=== PATIENT | male | born 1995 | race Caucasian/White ===

== ENCOUNTER 2017-04-15 15:02 | Emergency (ER) | payer SELFPAY ==
[~2017-04-15] VITALS: Ht 160 cm; Wt 51.9 kg
[2017-04-15 15:06] VITALS: BP 105/67; PULSE 83; RESP 20; TEMP 97.7; O2SAT 100
[2017-04-15 15:20] VITALS: RESP 16; O2SAT 99
[2017-04-15] MEDS ORDERED: SODIUM CHLOR 0.9% 1000 ML INJ 1,000 ML IV SCH (15:27)
[2017-04-15] MEDS ORDERED: ONDANSETRON HCL 4 MG/2 ML VIAL IVP ONE (15:30)
[2017-04-15] MEDS ORDERED: FAMOTIDINE 20 MG/2 ML VIAL IV PUSH ONE (15:30)
[2017-04-15 15:43] LABS: AUTOMATED NEUTROPHIL # 9.6 TH/MM3 (1.8-7.7); BASOPHIL % 0.3 % (0.0-2.0); EOSINOPHIL % 0.1 % (0.0-4.0); HEMATOCRIT 38.6 % (39.0-51.0); HEMO FLAGS DIFF FINAL; LYMPH % 5.3 % (9.0-44.0); LYMPHOCYTE # 0.5 TH/MM3 (1.0-4.8); MEAN CELL VOLUME 89.7 FL (80.0-100.0); MEAN CORPUSCULAR HEMOGLOBIN 30.8 PG (27.0-34.0); MEAN CORPUSCULAR HGB CONC 34.4 % (32.0-36.0); MONO % 1.9 % (0.0-8.0); NEUT % 92.4 % (16.0-70.0); PLATELET COUNT 200 TH/MM3 (150-450); WHITE BLOOD COUNT 10.3 TH/MM3 (4.0-11.0)
--- NOTE | 2017-04-15 15:44 | PD ---
HPI Chief Complaint: GI Complaint Time Seen by Provider: 15:18 Travel History International Travel<30 days: No Contact w/Intl Traveler<30days: No Traveled to known affect area: No History of Present Illness HPI Patient is a 21-year-old male comes in complaining of abdominal pain with nausea and vomiting. He says that he started feeling unwell yesterday, he thought it was related to all the Motrin that he was taking. He says it started with pain in his back and now has pain to the front of his abdomen. He started vomiting early this morning and has vomited several times. The last thing he ate was [employer] last night. He had a bowel movement today that was normal. He denies fever or chills. PFSH Past Medical History Medical History: Denies Significant Hx Past Surgical History Surgical History: No Previous Surgery Social History Tobacco Use: Yes Allergies-Medications (Allergen,Severity, Reaction): Coded Allergies: No Known Allergies (Verified , 04/19/17) Reported Meds & Prescriptions Reported Meds & Active Scripts Active Naprosyn (Naproxen) 500 Mg Tab 500 Mg PO BID PRN Zofran Odt (Ondansetron Odt) 4 Mg Tab 4 Mg SL Q8HR PRN May substitute non-ODT form. Flomax (Tamsulosin HCl) 0.4 Mg Cap 0.4 Mg PO HS Percocet (Oxycodone-Acetaminophen) 5-325 mg Tab 2 Tab PO Q6H PRN Review of Systems Except as stated in HPI: all other systems reviewed are Neg General / Constitutional: No: Fever, Chills HENT: No: Headaches, Lightheadedness Cardiovascular: No: Chest Pain or Discomfort Respiratory: No: Shortness of Breath Gastrointestinal: Positive: Nausea, Vomiting, Abdominal Pain, No: Diarrhea Musculoskeletal: No: Myalgias, Edema Skin: No Rash, No Change in Pigmentation Neurologic: No: Weakness, Dizziness Physical Exam Narrative GENERAL: Awake and alert, in no acute distress. SKIN: Focused skin assessment warm/dry. HEAD: Atraumatic. Normocephalic. EYES: Pupils equal and round. No scleral icterus. ENT: Mucous membranes pink and moist. NECK: Trachea midline. No JVD. CARDIOVASCULAR: Regular rate and rhythm. No murmur appreciated. RESPIRATORY: No accessory muscle use. Clear to auscultation. Breath sounds equal bilaterally. GASTROINTESTINAL: Abdomen soft, non-tender, nondistended. No CVA tenderness. MUSCULOSKELETAL: No obvious deformities. No clubbing. No cyanosis. No edema. NEUROLOGICAL: Awake and alert. No obvious cranial nerve deficits. Motor grossly within normal limits. Normal speech. PSYCHIATRIC: Appropriate mood and affect; insight and judgment normal. Data Data Last Documented VS Vital Signs Date Time Temp Pulse Resp B/P Pulse Ox O2 Delivery O2 Flow Rate FiO2 04/15/17 18:39 72 16 112/65 100 04/15/17 16:57 Room Air 04/15/17 15:06 97.7 Orders Complete Blood Count With Diff (04/15/17 15:27) Comprehensive Metabolic Panel (04/15/17 15:27) Lipase (04/15/17 15:27) Iv Access Insert/Monitor (04/15/17 15:27) Ecg Monitoring (04/15/17 15:27) Oximetry (04/15/17 15:27) Ondansetron Inj (Zofran Inj) (04/15/17 15:30) Sodium Chlor 0.9% 1000 Ml Inj (Ns 1000 M (04/15/17 15:27) Sodium Chloride 0.9% Flush (Ns Flush) (04/15/17 15:30) Famotidine Inj (Pepcid Inj) (04/15/17 15:30) Protein Corrected Calcium(Pcc) (04/15/17 15:40) Ondansetron Inj (Zofran Inj) (04/15/17 18:00) Labs Laboratory Tests Test 04/15/17 15:40 White Blood Count 10.3 TH/MM3 Red Blood Count 4.30 MIL/MM3 Hemoglobin 13.3 GM/DL Hematocrit 38.6 % Mean Corpuscular Volume 89.7 FL Mean Corpuscular Hemoglobin 30.8 PG Mean Corpuscular Hemoglobin 34.4 % Concent Red Cell Distribution Width 12.0 % Platelet Count 200 TH/MM3 Mean Platelet Volume 8.3 FL Neutrophils (%) (Auto) 92.4 % Lymphocytes (%) (Auto) 5.3 % Monocytes (%) (Auto) 1.9 % Eosinophils (%) (Auto) 0.1 % Basophils (%) (Auto) 0.3 % Neutrophils # (Auto) 9.6 TH/MM3 Lymphocytes # (Auto) 0.5 TH/MM3 Monocytes # (Auto) 0.2 TH/MM3 Eosinophils # (Auto) 0.0 TH/MM3 Basophils # (Auto) 0.0 TH/MM3 CBC Comment DIFF FINAL Differential Comment Sodium Level 144 MEQ/L Potassium Level 3.6 MEQ/L Chloride Level 109 MEQ/L Carbon Dioxide Level 23.5 MEQ/L Anion Gap 12 MEQ/L Blood Urea Nitrogen 25 MG/DL Creatinine 1.20 MG/DL Estimat Glomerular Filtration 76 ML/MIN Rate Random Glucose 122 MG/DL Calcium Level 11.0 MG/DL Protein Corrected Calcium 10.4 MG/DL Total Bilirubin 0.8 MG/DL Aspartate Amino Transf 17 U/L (AST/SGOT) Alanine Aminotransferase 23 U/L (ALT/SGPT) Alkaline Phosphatase 112 U/L Total Protein 8.1 GM/DL Albumin 4.6 GM/DL Lipase 102 U/L [facility] Medical Decision Making Medical Screen Exam Complete: Yes Emergency Medical Condition: Yes Differential Diagnosis Gastritis versus gastroenteritis versus pancreatitis versus cholecystitis Narrative Course Patient is a 21-year-old male comes in complaining of nausea, vomiting, abdominal pain. Exam shows no acute abnormalities, except patient is actively vomiting. Abdomen is soft and nontender. IV established, labs sent. Patient given IV fluids and Zofran as well as famotidine. Signed out to Dr. Davis to follow up testing and disposition the patient. Condition: Stable Tami Lilly MD Apr 15, 2017 15:44
[2017-04-15] MEDS: SODIUM CHLORIDE 0.9% FLUSH 10 ML FLUSH IV FLUSH PRN ×2 (16:00→18:14)
[2017-04-15 16:06] LABS: CHLORIDE 109 MEQ/L (98-107); POTASSIUM 3.6 MEQ/L (3.5-5.1); SODIUM (NA) 144 MEQ/L (136-145)
[2017-04-15 16:11] LABS: ANION GAP 12 MEQ/L (5-15); BICARBONATE 23.5 MEQ/L (21.0-32.0); BLOOD UREA NITROGEN 25 MG/DL (7-18)
[2017-04-15 16:14] LABS: ALT (GPT) 23 U/L (12-78); AST (GOT) 17 U/L (15-37); GLOMERULAR FILTRATION RATE 76 ML/MIN (>89)
[2017-04-15 16:15] LABS: TOTAL BILIRUBIN ADULT 0.8 MG/DL (0.2-1.0)
[2017-04-15 16:16] LABS: ALKALINE PHOSPHATASE 112 U/L (45-117)
[2017-04-15 16:57] VITALS: BP 107/50; PULSE 78; RESP 16; O2SAT 100
[2017-04-15 17:07] LABS: CALCIUM-PROTEIN CORRECTED 10.4 MG/DL (8.5-10.1)
[2017-04-15] MEDS ORDERED: FAMO20TA2 PO (17:50)
[2017-04-15] MEDS ORDERED: ZOFR4TAB PO (17:50)
--- NOTE | 2017-04-15 17:51 | PD ---
Physical Exam Date Seen by Provider: Apr 15, 2017 Time Seen by Provider: 17:47 Narrative This 21-year-old male who presented with epigastric pain and vomiting. He does take a lot of Aleve and Motrin tooth pain. He was seen by Dr. Carlson fluids were ordered. The patient reports feeling better after the fluids. Lab work is unremarkable. His calcium was 11 but protein corrected calcium is 10.4. He' ll be released with prescription for Zofran and famotidine Data Data Last Documented VS Vital Signs Date Time Temp Pulse Resp B/P Pulse Ox O2 Delivery O2 Flow Rate FiO2 04/15/17 17:37 16 04/15/17 16:57 78 107/50 100 Room Air 04/15/17 15:06 97.7 Orders Complete Blood Count With Diff (04/15/17 15:27) Comprehensive Metabolic Panel (04/15/17 15:27) Lipase (04/15/17 15:27) Iv Access Insert/Monitor (04/15/17 15:27) Ecg Monitoring (04/15/17 15:27) Oximetry (04/15/17 15:27) Ondansetron Inj (Zofran Inj) (04/15/17 15:30) Sodium Chlor 0.9% 1000 Ml Inj (Ns 1000 M (04/15/17 15:27) Sodium Chloride 0.9% Flush (Ns Flush) (04/15/17 15:30) Famotidine Inj (Pepcid Inj) (04/15/17 15:30) Protein Corrected Calcium(Pcc) (04/15/17 15:40) Labs Laboratory Tests Test 04/15/17 15:40 White Blood Count 10.3 TH/MM3 Red Blood Count 4.30 MIL/MM3 Hemoglobin 13.3 GM/DL Hematocrit 38.6 % Mean Corpuscular Volume 89.7 FL Mean Corpuscular Hemoglobin 30.8 PG Mean Corpuscular Hemoglobin 34.4 % Concent Red Cell Distribution Width 12.0 % Platelet Count 200 TH/MM3 Mean Platelet Volume 8.3 FL Neutrophils (%) (Auto) 92.4 % Lymphocytes (%) (Auto) 5.3 % Monocytes (%) (Auto) 1.9 % Eosinophils (%) (Auto) 0.1 % Basophils (%) (Auto) 0.3 % Neutrophils # (Auto) 9.6 TH/MM3 Lymphocytes # (Auto) 0.5 TH/MM3 Monocytes # (Auto) 0.2 TH/MM3 Eosinophils # (Auto) 0.0 TH/MM3 Basophils # (Auto) 0.0 TH/MM3 CBC Comment DIFF FINAL Differential Comment Sodium Level 144 MEQ/L Potassium Level 3.6 MEQ/L Chloride Level 109 MEQ/L Carbon Dioxide Level 23.5 MEQ/L Anion Gap 12 MEQ/L Blood Urea Nitrogen 25 MG/DL Creatinine 1.20 MG/DL Estimat Glomerular Filtration 76 ML/MIN Rate Random Glucose 122 MG/DL Calcium Level 11.0 MG/DL Protein Corrected Calcium 10.4 MG/DL Total Bilirubin 0.8 MG/DL Aspartate Amino Transf 17 U/L (AST/SGOT) Alanine Aminotransferase 23 U/L (ALT/SGPT) Alkaline Phosphatase 112 U/L Total Protein 8.1 GM/DL Albumin 4.6 GM/DL Lipase 102 U/L [facility] Medical Record Reviewed: No Supervised Visit with LONG: No Differential Diagnosis Differential includes gastritis, pancreatitis Narrative Course Lipase is normal Diagnosis Primary Impression: Acute gastritis Qualified Code: K29.00 - Acute gastritis without hemorrhage, unspecified gastritis type Scripts Famotidine 20 Mg Tab20 Mg PO BID #30 TAB Ref 0 Prov:Dao Beltre MD 04/15/17 Ondansetron (Zofran)4 Mg Tab4 Mg PO Q6HR PRN (NAUSEA OR VOMITING) #10 TAB Ref 0 Prov:Dao Beltre MD 04/15/17 Disposition: 01 DISCHARGE HOME Condition: Stable Dao Betlre MD Apr 15, 2017 17:51
[2017-04-15] MEDS ORDERED: ONDANSETRON HCL 4 MG/2 ML VIAL IV PUSH ONE (18:00)
[2017-04-15 18:39] VITALS: BP 112/65
== END 2017-04-15 18:41 | disposition home or self-care (01) ==
LOC: PHED 15:02
DX: M54.9 Dorsalgia, unspecified (principal); K29.00 Acute gastritis without bleeding
CPT/HCPCS: 80053; 83690; 84155; 85025; 96374; 96375; 96376; 99284; J2405; J7030

== ENCOUNTER 2017-04-17 12:03 | Emergency (ER) | payer SELFPAY ==
[~2017-04-17] VITALS: Ht 160 cm; Wt 53.0 kg
[~2017-04-17 12:03] MED LIST: FAMO20TA2 PO; ZOFR4TAB PO
[2017-04-17 12:05] VITALS: BP 122/78; PULSE 78; RESP 16; TEMP 99; O2SAT 100
--- NOTE | 2017-04-17 12:43 | PD ---
HPI Chief Complaint: Abdominal Pain Time Seen by Provider: 12:34 Travel History International Travel<30 days: No Contact w/Intl Traveler<30days: No Traveled to known affect area: No History of Present Illness HPI C/O OF ONGOING RUQ/RLQ PAIN, NAUSEA NOT IMPROVING OVER THE LAST 2 DAYS...PT SEEN HERE RECENTLY HAD BLOOD WORK WITHOUT ANY IMAGING PFSH Past Medical History Asthma: Yes (as a child) Headaches: Yes Social History Alcohol Use: No Tobacco Use: No Substance Use: No Allergies-Medications (Allergen,Severity, Reaction): Coded Allergies: No Known Allergies (Verified , 04/15/17) Reported Meds & Prescriptions Reported Meds & Active Scripts Active Review of Systems Except as stated in HPI: all other systems reviewed are Neg Gastrointestinal: Positive: Abdominal Pain (RUQ/RLQ) Genitourinary: Positive: Flank Pain (RIGHT) Physical Exam Narrative GENERAL: SKIN: Warm and dry. HEAD: Atraumatic. Normocephalic. EYES: Pupils equal and round. No scleral icterus. No injection or drainage. ENT: No nasal bleeding or discharge. Mucous membranes pink and moist. NECK: Trachea midline. No JVD. CARDIOVASCULAR: Regular rate and rhythm. RESPIRATORY: No accessory muscle use. Clear to auscultation. Breath sounds equal bilaterally. GASTROINTESTINAL: Abdomen soft, RUQ AND RLQ MILDLY TTP. nondistended. Hepatic and splenic margins not palpable. NO REBOUND, NO RIGIDITY MUSCULOSKELETAL: Extremities without clubbing, cyanosis, or edema. No obvious deformities. NEUROLOGICAL: Awake and alert. No obvious cranial nerve deficits. Motor grossly within normal limits. Five out of 5 muscle strength in the arms and legs. Normal speech. PSYCHIATRIC: Appropriate mood and affect; insight and judgment normal. Data Data Last Documented VS Vital Signs Date Time Temp Pulse Resp B/P Pulse Ox O2 Delivery O2 Flow Rate FiO2 04/17/17 14:17 16 04/17/17 12:56 98 Room Air 04/17/17 12:54 85 133/76 04/17/17 12:05 99.0 Orders Complete Blood Count With Diff (04/17/17 12:35) Comprehensive Metabolic Panel (04/17/17 12:35) Lipase (04/17/17 12:35) Ct Abd/Pel W Iv Contrast(Rout) (04/17/17 12:35) Iv Access Insert/Monitor (04/17/17 12:35) Ecg Monitoring (04/17/17 12:35) Oximetry (04/17/17 12:35) Hydromorphone Pf Inj (Dilaudid Pf Inj) (04/17/17 12:45) Ondansetron Inj (Zofran Inj) (04/17/17 12:45) Sodium Chlor 0.9% 1000 Ml Inj (Ns 1000 M (04/17/17 12:45) Oral Contrast - Adult (04/17/17 13:00) Diatrizoate Liq ( Gastroview Liq) (04/17/17 13:10) Sodium Chlor 0.9% 1000 Ml Inj (Ns 1000 M (04/17/17 13:45) Iohexol 350 Inj (Omnipaque 350 Inj) (04/17/17 14:36) Labs Laboratory Tests Test 04/17/17 12:40 White Blood Count 11.1 TH/MM3 Red Blood Count 4.24 MIL/MM3 Hemoglobin 13.2 GM/DL Hematocrit 37.8 % Mean Corpuscular Volume 89.1 FL Mean Corpuscular Hemoglobin 31.2 PG Mean Corpuscular Hemoglobin 35.0 % Concent Red Cell Distribution Width 12.2 % Platelet Count 196 TH/MM3 Mean Platelet Volume 8.8 FL Neutrophils (%) (Auto) 87.6 % Lymphocytes (%) (Auto) 5.9 % Monocytes (%) (Auto) 3.8 % Eosinophils (%) (Auto) 0.0 % Basophils (%) (Auto) 2.7 % Neutrophils # (Auto) 9.8 TH/MM3 Lymphocytes # (Auto) 0.7 TH/MM3 Monocytes # (Auto) 0.4 TH/MM3 Eosinophils # (Auto) 0.0 TH/MM3 Basophils # (Auto) 0.3 TH/MM3 CBC Comment DIFF FINAL Differential Comment Sodium Level 142 MEQ/L Potassium Level 3.4 MEQ/L Chloride Level 107 MEQ/L Carbon Dioxide Level 22.8 MEQ/L Anion Gap 12 MEQ/L Blood Urea Nitrogen 21 MG/DL Creatinine 1.50 MG/DL Estimat Glomerular Filtration 59 ML/MIN Rate Random Glucose 111 MG/DL Calcium Level 10.6 MG/DL Total Bilirubin 0.7 MG/DL Aspartate Amino Transf 22 U/L (AST/SGOT) Alanine Aminotransferase 24 U/L (ALT/SGPT) Alkaline Phosphatase 101 U/L Total Protein 7.9 GM/DL Albumin 4.5 GM/DL Lipase 112 U/L [facility] Medical Decision Making Medical Screen Exam Complete: Yes Emergency Medical Condition: Yes Medical Record Reviewed: Yes Differential Diagnosis APPY VS KIDNEY STONE VS GALLBLADDER PATHOLOGY Narrative Course MODERATE DEHYDRATION TREATED WITH 2L NS, CT SHOWED URETERAL STONE WITH HYDRO, PT TOLERATING PO AND WILL D/C HOME Diagnosis Primary Impression: Ureterolithiasis Patient Instructions: General Instructions, Kidney Stones (ED) Med/Other Pt SpecificInfo: Prescription(s) given Scripts Tamsulosin (Flomax)0.4 Mg Cap0.4 Mg PO HS #7 CAP Ref 0 Prov:Mike Hogue MD 04/17/17 Ondansetron Odt (Zofran Odt)4 Mg Tab4 Mg SL Q6HR PRN (Nausea/Vomiting) #20 TAB Ref 0 Prov:Mike Hogue MD 04/17/17 Oxycodone-Acetaminophen (Percocet)5-325 mg Tab2 Tab PO Q6H PRN (PAIN) #28 TAB Ref 0 Prov:Mike Hogue MD 04/17/17 Disposition: 01 DISCHARGE HOME Condition: Stable Mike Hogue MD Apr 17, 2017 12:42
[2017-04-17] MEDS ORDERED: SODIUM CHLOR 0.9% 1000 ML INJ 1,000 ML IV ONE ×2 (12:45→13:45)
[2017-04-17] MEDS ORDERED: HYDROmorphone HCL PF 2 MG/ML VIAL IVS ONE (12:45)
[2017-04-17] MEDS ORDERED: ONDANSETRON HCL 4 MG/2 ML VIAL IVP ONE (12:45)
[2017-04-17 12:48] LABS: AUTOMATED NEUTROPHIL # 9.8 TH/MM3 (1.8-7.7); BASOPHIL # 0.3 TH/MM3 (0-0.2); BASOPHIL % 2.7 % (0.0-2.0); HEMATOCRIT 37.8 % (39.0-51.0); HEMO FLAGS DIFF FINAL; LYMPH % 5.9 % (9.0-44.0); LYMPHOCYTE # 0.7 TH/MM3 (1.0-4.8); MEAN CELL VOLUME 89.1 FL (80.0-100.0); MEAN CORPUSCULAR HEMOGLOBIN 31.2 PG (27.0-34.0); MONO % 3.8 % (0.0-8.0); NEUT % 87.6 % (16.0-70.0); PLATELET COUNT 196 TH/MM3 (150-450); RED BLOOD COUNT 4.24 MIL/MM3 (4.50-5.90); RED CELL DISTRIBUTION WIDTH 12.2 % (11.6-17.2); WHITE BLOOD COUNT 11.1 TH/MM3 (4.0-11.0)
[2017-04-17 12:54] VITALS: BP 133/76; PULSE 85; RESP 16; O2SAT 98
[2017-04-17 12:56] VITALS: RESP 16; O2SAT 98
[2017-04-17 13:00] LABS: CHLORIDE 107 MEQ/L (98-107); POTASSIUM 3.4 MEQ/L (3.5-5.1); SODIUM (NA) 142 MEQ/L (136-145)
[2017-04-17 13:03] LABS: BLOOD UREA NITROGEN 21 MG/DL (7-18)
[2017-04-17 13:05] LABS: ANION GAP 12 MEQ/L (5-15); BICARBONATE 22.8 MEQ/L (21.0-32.0)
[2017-04-17 13:06] LABS: ALT (GPT) 24 U/L (12-78); AST (GOT) 22 U/L (15-37); GLOMERULAR FILTRATION RATE 59 ML/MIN (>89)
[2017-04-17 13:07] LABS: TOTAL BILIRUBIN ADULT 0.7 MG/DL (0.2-1.0)
[2017-04-17 13:09] LABS: ALKALINE PHOSPHATASE 101 U/L (45-117)
[2017-04-17] MEDS ORDERED: DIATRIZOATE MEGLUM/DIATRIZOATE SOD 9 ML CUP ONE (13:10)
--- NOTE | 2017-04-17 14:19 | RADHPO ---
EXAM DATE/TIME: 04/17/2017 13:49 [place] COMPARISON: No previous studies available for comparison. INDICATIONS : Right lower quadrant pain and painful urination. IV CONTRAST: 89 cc Omnipaque 350 (iohexol) IV ORAL CONTRAST: No oral contrast ingested. RADIATION DOSE: 4.48 CTDIvol (mGy) MEDICAL HISTORY : None SURGICAL HISTORY : None. ENCOUNTER: Initial ACUITY: 1 day PAIN SCALE: 10/10 LOCATION: Right lower quadrant abdomen. TECHNIQUE: Volumetric scanning of the abdomen and pelvis was performed. Using automated exposure control and ad justment of the mA and/or kV according to patient size, radiation dose was kept as low as reasonably achievable to obtain optimal diagnostic quality images. FINDINGS: LOWER LUNGS: The visualized lower lungs are clear. LIVER: Homogeneous density without lesion. There is no dilation of the biliary tree. No calcified gallston es. SPLEEN: Normal size without lesion. PANCREAS: Within normal limits. KIDNEYS: There is a 3 mm calcified calculus at the UVJ with resultant moderate hydroureter and hydronephrosis on the right. Left kidney is normal in appearance. No additional radiopaque renal calculi are demonst rated. ADRENAL GLANDS: Within normal limits. VASCULAR: Normal. BOWEL/MESENTERY: The appendix is not directly visualized. However, there is no significant stranding or prominent kenzie cecal nodes. The bowel is unremarkable. ABDOMINAL WALL: Within normal limits. RETROPERITONEUM: There is no lymphadenopathy. BLADDER: Bladder is otherwise unremarkable. No additional radiopaque calculi. REPRODUCTIVE: Within normal limits. INGUINAL: There is no lymphadenopathy or hernia. MUSCULOSKELETAL: Within normal limits for patient age. CONCLUSION: 1. 3 mm right UVJ calcified calculus with resultant right-sided hydroureteronephrosis. 2. Appendix is not directly visualized. However, no secondary findings of appendicitis. Gus Santos MD on April 17, 2017 at 14:11 Board Certified Radiologist. This report was verified electronically.
[2017-04-17] MEDS ORDERED: IOHEXOL 350 MG/ML 10 ML VIAL (for RAD DIAG) IV ONE (14:36)
[2017-04-17] MEDS ORDERED: TAMS5CAP PO (14:49)
[2017-04-17] MEDS ORDERED: PERC5TAB12 PO (14:49)
[2017-04-17] MEDS ORDERED: ZOFR4TAB3 SL (14:49)
[2017-04-17 15:00] VITALS: BP 130/74; PULSE 80; RESP 16; O2SAT 98
== END 2017-04-17 15:19 | disposition home or self-care (01) ==
LOC: PHED 12:03
DX: N20.1 Calculus of ureter (principal)
CPT/HCPCS: 74177; 80053; 83690; 85025; 96361; 96374; 96375; 99285; J1170; J2405; J7030; Q9967; Q9963

== ENCOUNTER 2017-04-19 12:14 | Emergency (ER) | payer SELFPAY ==
[~2017-04-19] VITALS: Ht 160 cm; Wt 53.0 kg
[~2017-04-19 12:14] MED LIST changes: +PERC5TAB12 PO; +TAMS5CAP PO; +ZOFR4TAB3 SL
[2017-04-19 12:21] VITALS: BP 107/64; PULSE 104; RESP 18; TEMP 98.2; O2SAT 99
[2017-04-19 12:43] LABS: AUTOMATED NEUTROPHIL # 7.1 TH/MM3 (1.8-7.7); BASOPHIL # 0.1 TH/MM3 (0-0.2); BASOPHIL % 0.7 % (0.0-2.0); EOSINOPHIL % 0.4 % (0.0-4.0); HEMATOCRIT 40.8 % (39.0-51.0); HEMO FLAGS DIFF FINAL; LYMPH % 12.4 % (9.0-44.0); LYMPHOCYTE # 1.1 TH/MM3 (1.0-4.8); MEAN CELL VOLUME 89.1 FL (80.0-100.0); MEAN CORPUSCULAR HEMOGLOBIN 30.5 PG (27.0-34.0); MEAN CORPUSCULAR HGB CONC 34.2 % (32.0-36.0); MONO % 4.2 % (0.0-8.0); NEUT % 82.3 % (16.0-70.0); PLATELET COUNT 206 TH/MM3 (150-450); RED BLOOD COUNT 4.58 MIL/MM3 (4.50-5.90); RED CELL DISTRIBUTION WIDTH 11.9 % (11.6-17.2); WHITE BLOOD COUNT 8.7 TH/MM3 (4.0-11.0)
[2017-04-19] MEDS ORDERED: ONDANSETRON HCL 4 MG/2 ML VIAL IV PUSH ONE (12:45)
[2017-04-19] MEDS ORDERED: KETOROLAC TROMETHAMINE 30 MG/ML (IVP) VIAL IV PUSH ONE (12:45)
[2017-04-19] MEDS ORDERED: SODIUM CHLOR 0.9% 1000 ML INJ 1,000 ML IV SCH (12:45)
[2017-04-19 12:51] LABS: POTASSIUM 3.4 MEQ/L (3.5-5.1)
--- NOTE | 2017-04-19 12:53 | PD ---
HPI Chief Complaint: Abdominal Pain Time Seen by Provider: 12:27 Travel History International Travel<30 days: No Contact w/Intl Traveler<30days: No Traveled to known affect area: No History of Present Illness HPI Is a 21-year-old man who presents to the emergency department claiming of ongoing right sided abdominal pain, nausea, cramping, discomfort. States he was unable to full the Zofran. He did get the pain medicine and the Flomax. He was seen emergency Department twice in the past several days, and was found to have a 3 mm stone at the right UVJ. States he felt fine yesterday and then tonight was having recurrent symptoms. The right kidney stones before. No other complaints. History Past Medical History Medical History: Denies Significant Hx Tetanus Vaccination: Unknown Social History Alcohol Use: No Tobacco Use: No Allergies-Medications (Allergen,Severity, Reaction): Coded Allergies: No Known Allergies (Verified , 04/19/17) Reported Meds & Prescriptions Reported Meds & Active Scripts Active Naprosyn (Naproxen) 500 Mg Tab 500 Mg PO BID PRN Zofran Odt (Ondansetron Odt) 4 Mg Tab 4 Mg SL Q8HR PRN May substitute non-ODT form. Flomax (Tamsulosin HCl) 0.4 Mg Cap 0.4 Mg PO HS Percocet (Oxycodone-Acetaminophen) 5-325 mg Tab 2 Tab PO Q6H PRN Review of Systems Except as stated in HPI: all other systems reviewed are Neg Physical Exam Narrative GENERAL: 21-year-old man, hyperventilating, appears uncomfortable but nontoxic. SKIN: Focused skin assessment warm/dry. CARDIOVASCULAR: Regular rate and rhythm. No murmur appreciated. RESPIRATORY: Deep long breathing. No respiratory distress. Lungs are clear. GASTROINTESTINAL: Abdomen soft, non-tender, nondistended. Hepatic and splenic margins not palpable. MUSCULOSKELETAL: No obvious deformities. No clubbing. No cyanosis. No edema. NEUROLOGICAL: Awake and alert. No obvious cranial nerve deficits. Motor grossly within normal limits. Normal speech. PSYCHIATRIC: Anxious. Data Data Last Documented VS Vital Signs Date Time Temp Pulse Resp B/P Pulse Ox O2 Delivery O2 Flow Rate FiO2 04/19/17 12:21 98.2 104 18 107/64 99 Orders Basic Metabolic Panel (Bmp) (04/19/17 12:33) Complete Blood Count With Diff (04/19/17 12:33) Iv Access Insert/Monitor (04/19/17 12:33) Sodium Chlor 0.9% 1000 Ml Inj (Ns 1000 M (04/19/17 12:45) Ketorolac Inj (Toradol Inj) (04/19/17 12:45) Ondansetron Inj (Zofran Inj) (04/19/17 12:45) Labs Laboratory Tests Test 04/19/17 12:39 White Blood Count 8.7 TH/MM3 Red Blood Count 4.58 MIL/MM3 Hemoglobin 13.9 GM/DL Hematocrit 40.8 % Mean Corpuscular Volume 89.1 FL Mean Corpuscular Hemoglobin 30.5 PG Mean Corpuscular Hemoglobin 34.2 % Concent Red Cell Distribution Width 11.9 % Platelet Count 206 TH/MM3 Mean Platelet Volume 8.4 FL Neutrophils (%) (Auto) 82.3 % Lymphocytes (%) (Auto) 12.4 % Monocytes (%) (Auto) 4.2 % Eosinophils (%) (Auto) 0.4 % Basophils (%) (Auto) 0.7 % Neutrophils # (Auto) 7.1 TH/MM3 Lymphocytes # (Auto) 1.1 TH/MM3 Monocytes # (Auto) 0.4 TH/MM3 Eosinophils # (Auto) 0.0 TH/MM3 Basophils # (Auto) 0.1 TH/MM3 CBC Comment DIFF FINAL Differential Comment Sodium Level 142 MEQ/L Potassium Level 3.4 MEQ/L Chloride Level 105 MEQ/L Carbon Dioxide Level 24.2 MEQ/L Anion Gap 13 MEQ/L Blood Urea Nitrogen 11 MG/DL Creatinine 1.00 MG/DL Estimat Glomerular Filtration 93 ML/MIN Rate Random Glucose 98 MG/DL Calcium Level 10.4 MG/DL [facility] Medical Decision Making Medical Screen Exam Complete: Yes Emergency Medical Condition: Yes Interpretation(s) LABS: CBC is unremarkable. CMP unremarkable. Differential Diagnosis Renal stone, hyperventilation, electrolyte abnormality, infection, other Narrative Course Medical decision making INITIAL calls a 21-year-old male presents emergency Department with abdominal pain related to right sided ureteral lithiasis. He is a 3 mm right UVJ stone. This should pass soon. He otherwise looks well. He some tingling in his hands that seems to be from hyperventilation from pain. He is on Percocet, was unable to afford the Zofran, and is not taking any NSAIDs. We'll recommend NSAIDs in addition to the Percocet, will prescribe him non-ODT Zofran. Reassess. Diagnosis Primary Impression: Ureterolithiasis Additional Instructions: Take Naprosyn as needed for pain. Continue Percocet as needed for severe pain. Use Zofran if needed for nausea or vomiting. Follow-up with your primary doctor in the next 2-4 days. Return to the emergency department for any worsening abdominal pain, fevers or chills, or any other new or worsening symptoms. Med/Other Pt SpecificInfo: Prescription(s) given Scripts Naproxen (Naprosyn)500 Mg Ppc118 Mg PO BID PRN (PAIN SCALE 1 TO 10) #20 TAB Prov:Murali Escalona MD 04/19/17 Ondansetron Odt (Zofran Odt)4 Mg Tab4 Mg SL Q8HR PRN (Nausea/Vomiting) #15 TAB May substitute non-ODT form. Prov:Murali Escalona MD 04/19/17 Disposition: 01 DISCHARGE HOME Condition: Stable Murali Escalona MD Apr 19, 2017 12:53
[2017-04-19 12:55] LABS: BICARBONATE 24.2 MEQ/L (21.0-32.0)
[2017-04-19] MEDS ORDERED: ZOFR4TAB3 SL (13:13)
[2017-04-19] MEDS ORDERED: NAPR500 PO (13:13)
[2017-04-19 13:32] VITALS: BP 124/68; PULSE 70; RESP 16; O2SAT 100
== END 2017-04-19 13:51 | disposition home or self-care (01) ==
LOC: PHED 12:14
DX: N20.1 Calculus of ureter (principal)
CPT/HCPCS: 80048; 85025; 96374; 96375; 99284; J1885; J2405; J7030